=== PATIENT | female | born 1990 | race Caucasian/White ===

== ENCOUNTER 2021-04-20 10:34 | Emergency (ER) | payer OTHER ==
[~2021-04-20] VITALS: Ht 180.3 cm; Wt 131.5 kg
[~2021-04-20 10:34] MED LIST: ZANTAC 150MG T150 M1 PO
[2021-04-20] MEDS ORDERED: BUPROPION XL300 MG PO (10:44)
[2021-04-20] MEDS ORDERED: BIRTH CONTROL PO (10:44)
[2021-04-20 15:27] VITALS: BP 151/92
== END 2021-04-20 15:28 | disposition home or self-care (01) ==
LOC: M.ERS 10:34
DX: M25.532 Pain in left wrist (principal); F41.9 Anxiety disorder, unspecified; Z79.899 Other long term (current) drug therapy